=== PATIENT | male | born 1990 | race African-American/Black ===

== ENCOUNTER 2019-06-27 17:51 | Emergency (ER) | payer MEDICAID ==
[~2019-06-27] VITALS: Ht 182.9 cm; Wt 82.6 kg
[2019-06-27 18:02] VITALS: Ht 182.9 cm; Wt 82.6 kg
[2019-06-27 20:14] VITALS: BP 138/84
== END 2019-06-27 20:22 | disposition home or self-care (01) ==
LOC: ED 17:51
DX: J06.9 Acute upper respiratory infection, unspecified (principal)